=== PATIENT | male | born 1970 | race Asian ===

== ENCOUNTER 2019-03-22 09:40 | Outpatient (REF) | payer BC, SELFPAY ==
[2019-03-22 13:10] LABS: Anion Gap 9.6 mmol/L (3-11); BUN 14 mg/dL (7-18); CO2 28.4 mmol/L (21.0-32.0); CREATININE 0.95 mg/dL (0.70-1.30); Calcium 9.2 mg/dL (8.5-10.1); Calculated LDL 107 mg/dL; Chloride 106 mmol/L (98-107); Cholesterol 210 mg/dL (50-200); Glucose 98 mg/dL (70-100); HDL Cholesterol 42 mg/dL (40-60); Potassium 3.9 mmol/L (3.5-5.1); Sodium 144 mmol/L (136-145); Triglyceride 309 mg/dL (30-150)
[2019-03-23 13:19] LABS: PSA, Screening 0.5 ng/ml (0-2.5)
== END 2019-03-22 10:00 ==
LOC: NCHCN 09:40
PROVIDERS: PCP Specialist/Technologist Athletic Trainer; Visit Provider Specialist/Technologist Athletic Trainer
DX: Z00.00 Encounter for general adult medical examination without abnormal findings (principal); Z13.220 Encounter for screening for lipoid disorders; Z13.228 Encounter for screening for other metabolic disorders; Z12.5 Encounter for screening for malignant neoplasm of prostate
CPT/HCPCS: 80048; 80061; 84153

== ENCOUNTER 2020-04-29 10:11 | Outpatient (REF) | payer BC, SELFPAY ==
[2020-04-29 21:19] LABS: Calculated LDL 164 mg/dL (<100); Cholesterol 259 mg/dL (<200); HDL Cholesterol 47 mg/dL (40-60); Triglyceride 242 mg/dL (<150)
== END 2020-04-29 10:31 ==
LOC: NCHCN 10:11
PROVIDERS: PCP Specialist/Technologist Athletic Trainer; Visit Provider Nurse Practitioner Family
DX: E78.1 Pure hyperglyceridemia (principal)
CPT/HCPCS: 80061

== ENCOUNTER 2020-09-10 15:11 | Outpatient (CLI) | payer BC, SELFPAY ==
--- NOTE | 2020-09-10 | DI.RAD_ITS ---
EXAM: XR FOOT LT COMPLETE CLINICAL HISTORY: SPRAIN OF LT FOOT, [id number]. TECHNIQUE: 2D digital imaging was performed. COMPARISON: No exams were available for comparison FINDINGS: BONES: There is an acute nondisplaced fracture through the base of the 5th metatarsal. No bony destr uctive lesion is seen. JOINTS: No dislocation present. SOFT TISSUE: Normal. IMPRESSION: Acute nondisplaced fracture through the base of the 5th metatarsal. DATA REPOSITORY: RADIATION DOSE DELIVERED:
== END 2020-09-10 15:31 ==
PROVIDERS: PCP Specialist/Technologist Athletic Trainer; Visit Provider Internal Medicine
DX: M79.672 Pain in left foot (principal); S93.692A Other sprain of left foot, initial encounter; S92.355A Nondisplaced fracture of fifth metatarsal bone, left foot, initial encounter for closed fracture
CPT/HCPCS: 73630

== ENCOUNTER 2020-10-22 09:45 | Outpatient (CLI) | payer BC, SELFPAY ==
--- NOTE | 2020-10-22 09:15 | DI.RAD_ITS ---
Exam(s) XR FOOT LT COMPLETE EXAM: XR FOOT LT COMPLETE CLINICAL HISTORY: f/u. TECHNIQUE: 2D digital imaging was performed. COMPARISON: CR XR FOOT LT COMPLETE from 09/10/2020 FINDINGS: BONES: There has been no change in the alignment of the previously noted fracture at the base of the 5th metatarsal.. No bony destructive lesion is seen. JOINTS: No dislocation present. SOFT TISSUE: Normal. IMPRESSION: No change in alignment of fracture base 5th metatarsal DATA REPOSITORY: RADIATION DOSE DELIVERED:
== END 2020-10-22 09:46 | disposition home or self-care (01) ==
LOC: DIORS 09:45
PROVIDERS: PCP Specialist/Technologist Athletic Trainer; Referring Provider Specialist/Technologist Athletic Trainer; Visit Provider Student in an Organized Health Care Education/Training Program
DX: S92.352D Displaced fracture of fifth metatarsal bone, left foot, subsequent encounter for fracture with routine healing (principal)
CPT/HCPCS: 73630

== ENCOUNTER 2021-05-15 11:36 | Outpatient (REF) | payer BC, SELFPAY ==
[2021-05-15 14:55] LABS: Calculated LDL 82 mg/dL (<100); Cholesterol 150 mg/dL (<200); HDL Cholesterol 47 mg/dL (40-60); Triglyceride 105 mg/dL (<150)
== END 2021-05-15 11:37 ==
LOC: NCHCN 11:36
PROVIDERS: PCP Specialist/Technologist Athletic Trainer; Visit Provider Family Medicine
DX: E78.1 Pure hyperglyceridemia (principal); Z00.00 Encounter for general adult medical examination without abnormal findings
CPT/HCPCS: 80061

== ENCOUNTER 2021-05-19 13:27 | Outpatient (REF) | payer BC, SELFPAY ==
[2021-05-19 15:31] LABS: ALT 95 U/L (16-63); AST 27 U/L (15-37); Albumin 4.3 g/dL (3.4-5.0); Alkaline Phosphatase 81 U/L (46-116); Anion Gap 6.1 mmol/L (3-11); BUN 14 mg/dL (7-18); Bilirubin, Total 0.7 mg/dL (0.2-1.0); CO2 28.9 mmol/L (21.0-32.0); CREATININE 0.9 mg/dL (0.70-1.30); Calcium 9.4 mg/dL (8.5-10.1); Chloride 105 mmol/L (98-107); Glucose 103 mg/dL (74-106); Sodium 140 mmol/L (136-145); Total Protein 7.7 g/dL (6.4-8.2)
[2021-05-20 09:52] LABS: HBs Antibody, Quant >1000.0 mIU/mL (See Note); Hepatitis B Surface Ab Positive (See Note)
[2021-05-20 10:06] LABS: Hepatitis B Surface Ag Negative (Negative)
== END 2021-05-19 13:28 | disposition home or self-care (01) ==
LOC: NCHCN 13:27
PROVIDERS: PCP Specialist/Technologist Athletic Trainer; Visit Provider Family Medicine
DX: Z00.00 Encounter for general adult medical examination without abnormal findings (principal); E78.1 Pure hyperglyceridemia; Z11.59 Encounter for screening for other viral diseases
CPT/HCPCS: 80053; 86706; 87340

== ENCOUNTER 2022-04-06 09:55 | Day surgery (SDC) | payer BC, SELFPAY ==
--- NOTE | 2022-04-06 07:11 | W.COLOREPORT ---
Date of service: 04/06/22 Time of Service: 11:15 Colonoscopy Report Date of procedure: 04/06/22 Pre-op diagnosis general: screening and family history Procedure: Colonoscopy Surgeon: Isabella Root Anesthesia Type: General:No Airway Estimated blood loss (mL): 0 Pathology: none sent Complications: None Disposition: same day Indications: The patient? is a pleasant 51 -year-old male who is here to discuss HIS FIRST screening colonoscopy. ? He denies any changes in bowel habits, melena, hematochezia, unintentional weight loss. He does have a? family history of colon cancer in his mother.? The procedure and risks were discussed.? The prep was reviewed in detail.? Risks, benefits and complications have been reviewed. Complications include but are not limited to bleeding, pain, perforation, missed small lesion/polyp, sore throat, aspiration and adverse reaction to the medications. Questions were entertained and answered to their satisfaction and they wished to proceed. No guarantees were given or implied. Prep: Miralax/Dulcolax Procedure Start Time: :15 Procedure End Time: 11:30 Retraction Time: 9 minutes Findings: Normal colonoscopy Procedure Description: After informed consent was obtained the patient was taken to the procedure room and placed in a left decubitous position. Monitors were applied and a time out was done. The patients name, date of , procedure, allergies to medications and metal in their body was reviewed. The patient was then sedated. Once sedated and comfortable a rectal exam was done. External exam was normal. Internal exam revealed a normal sphincter tone and no palpable masses. The prostate felt smooth. The scope was then introduced and retro-flexed. No internal hemorrhoids, polyps or masses were identified on retro-flexion. The scope was then advanced to the cecum without difficulty. The ileocecal vlave and appendiceal orifice were identified. The prep was good. The scope was then slowly retracted over 9 minutes back into the rectum. There were no polyps. There was no diverticulosis noted. The scope was removed and the patient was woken up and taken back to Same day surgery in stable condition. The patient tolerated the procedure well and there were no immediate complications. Follow up: The patient should follow up in 5 years, due to a family history, unless they develop changes in bowel habits or other new gastrointestinal complaints.
--- NOTE | 2022-04-06 07:12 | W.PM.DSUDISC ---
Date of service: 04/06/22 Time of Service: 11:15 Discharge Plan Disposition Patient Disposition: HOME Condition: Good Discharge Details Reason For Visit: colonoscopy Attending Provider: Isabella Root Primary Care Provider: Jayy Garcia Home Meds and New Rx's Prescriptions: Continued atorvastatin 10 mg tablet 10 mg PO QHS omega-3 fatty acids 1,000 mg capsule 1,000 mg PO DAILY multivitamin [Daily Value] 1 EACH tablet 1 tab PO DAILY Discontinued bisacodyl [Dulcolax (bisacodyl)] 5 mg tablet,delayed release (DR/EC) 5 mg PO ONCE Qty: 4 0RF Rx Instructions: Take according to provider's instructions for colonoscopy prep. polyethylene glycol 3350 17 gram/dose powder 17 g PO ONCE Qty: 238 0RF Rx Instructions: To be taken as directed by prescriber's office for colonoscopy prep. Discharge Instructions Additional Instructions: Findings: normal Follow up: 5 years due to family history Please call if you develop: fevers >101.5 Nausea or Vomiting Abdominal pain that is not transient Rectal bleeding that is more then a tbsp A hard abdomen and inability to pass gas DAY SURGERY UNIT POST ENDOSCOPY INSTRUCTIONS Instructions for everyone who is given Anesthesia: For your safety, please do the following for the next 24 Hours: a. Do not drive or operate dangerous equipment b. Do not drink alcohol beverages or use any recreational drugs for the first 24 hours or while taking pain medications. The medications in your body may have a reaction that can be dangerous. c. Do not make any important decisions or sign any important papers 1. Generally there are no restrictions on your activity after a day or so has gone by, but you may feel a bit fatigued for a few days. 2. After you arrive home you may have a light meal and return to a normal diet as you can tolerate it without feeling sick to your stomach. 3. After surgery, you may feel pain or discomfort. This should be only transient, but if it persists please contact your doctor. 4. If there are any questions regarding the findings of your procedure, please feel free to contact your doctor. 6. If you are unable to contact your doctor with a problem, contact the hospital at [phone]. 7. Continue all your regular medications unless directed otherwise. I understand the above instructions and have no questions. Signature of Patient or Responsible Adult Escort Date/Time Name of Responsible Adult Escort Signature of Nurse Date/Time Activity:: Activity as Tolerated Diet:: As Tolerated Discharge Orders Discharge Orders: Discharge Order (Routine); Ordered 04/06/22 Ordered By: Isabella Root
[2022-04-06 10:15] VITALS: BP 110/76; PULSE 65; RESP 16; TEMP 36.2; O2SAT 100
--- NOTE | 2022-04-06 10:41 | ANES.PREOP_ITS ---
General Info Date of Service Date Performed: 04/06/22 Height: 5 ft 8.9 in Weight: 70.6 kg Body Mass Index (BMI): 23.0 Surgical Procedure: Operation Date: 04/06/22 11:20 Proposed Procedure Side Surgeon p Colonoscopy Isabella Root MD Meds Allergies and Home Medications Allergies Allergy/AdvReac Type Severity Reaction Status Date / Time No Known Allergies Allergy Unverified 04/06/22 10:24 Home Medication Medication Instructions Recorded multivitamin (Daily Value tablet) 1 tab PO DAILY 09/15/15 atorvastatin 10 mg tablet 10 mg PO QHS 07/22/21 omega-3 fatty acids 1,000 mg 1,000 mg PO DAILY 07/22/21 capsule bisacodyl 5 mg tablet,delayed 5 mg PO ONCE #4 tabs 03/24/22 release (Dulcolax (bisacodyl)) polyethylene glycol 3350 17 17 g PO ONCE #238 grams 03/24/22 gram/dose oral powder Current Visit Medications: Current Medications Generic Name Dose Route Start Last Admin Trade Name Nicole PRN Reason Stop Dose Admin Hyoscyamine Sulfate 0.125 mg 04/06/22 07:12 Hyoscyamine 0.125 Mg Sl/Oral/Chew SL DIRECTED PRN Ringer's Solution 1,000 mls @ 80 mls/hr 04/06/22 06:00 IV 05/03/22 23:59 [facility] IV Miscellaneous Supplies 1 each 04/06/22 06:00 Iv Access IV 05/03/22 23:59 DIRECTED DINORA Ondansetron HCl 4 mg 04/06/22 07:12 Ondansetron 4 Mg/2 Ml Vial IVP Q4H PRN PRN Nausea / Vomiting Sodium Chloride 0 ml 04/06/22 06:00 Normal Saline Flush 10 Ml Syr IV 05/03/22 23:59 PRN PRN Sodium Chloride 0 ml 04/06/22 06:00 Normal Saline 10 Ml Vial IJ 05/03/22 23:59 DIRECTED PRN Sterile Water 0 ml 04/06/22 06:00 Water,Injection,Sterile 10 Ml Vial IJ 05/03/22 23:59 DIRECTED PRN PFSH Active Problems Active Problems: Problem Status Onset Code Family history of colon cancer Z80.0 Screening for colon cancer Z12.11 Medical History Medical History Fracture of fifth metatarsal bone of left foot Hemorrhoids Hyperlipidemia Seasonal allergic rhinitis Tobacco Smoking/Tobacco Use Status: Former Tobacco Use Alcohol Alcohol Intake: current Alcohol intake frequency: a few times a month Alcohol type: wine Substance Use Substance use: Never Substance use type: does not use Vital Signs and Lab Results Vital Signs Most Recent Vital Signs in EMR: Most Recent Vital Signs Temp Pulse Resp BP Pulse Ox 36.2 C L 65 16 110/76 100 04/06/22 10:15 04/06/22 10:15 04/06/22 10:15 04/06/22 10:15 04/06/22 10:15 Lab Results Blood Type / Crossmatch: No Data to Display Complete Blood Count: No Data to Display Complete Metabolic Panel: No Data to Display Liver Function Panel: No Data to Display Coagulation Panel: No Data to Display Cardiac Panel: No Data to Display Arterial Blood Gas: No Data to Display Venous Blood Gas: No Data to Display Pancreas Panel: No Data to Display Thyroid Panel: No Data to Display Infectious Disease: No Data to Display Blood Cultures: No Data to Display Toxicology Panel: No Data to Display Anesthesia Assessment and Plan Anesthesia History Personal History: Unknown Anesthesia History Family History: No Family History of Anesthesia Complications Exercise Tolerance Exercise Tolerance: Metabolic Equivalents>4 Pertinent Negatives Pertinent Negatives: No Symptoms of GERD, No Major Cardiovascular Symptoms or Complaints and No Major Pulmonary Symptoms or Complaints Cardiac & Pulmonary Exam Cardiac Exam: Normal S1/S2 Heart Sounds Pulmonary Exam: Clear Bilateral Breath Sounds Implantable Cardiac Device Does patient have a Pacemaker or an ICD?: No Airway Exam Known Difficult Airway: No Mallampati Class: 2 Mouth Opening: Normal (> 3cm) Thyromental Distance: Greater than 3 cm Neck Range of Motion: Full ROM Neck Circumference: Normal Teeth Condition: Normal Dentition ASA Classification ASA Score: ASA 2 Emergency Case?: No NPO Status NPO Status: NPO Clears >2 hours, Solids >8 hours Anesthesia Plan Resuscitation Status: Full Code Anesthesia Technique: General Anesthesia Airway Planned: Natural Airway Monitors Used: Standard Monitors Preoperative Comments:: Use of Cantonese senior visual designer for preoperative interview and consent via Language Line
[2022-04-06] MEDS: Lactated Ringers 1,000 ML 80 ML IV (10:44)
[2022-04-06 11:10] VITALS: BMI 23.0
[2022-04-06 11:36] VITALS: BP 115/84; PULSE 60; RESP 16; TEMP 36.6; O2SAT 97
[2022-04-06 12:06] VITALS: BP 106/87; PULSE 62; RESP 18; TEMP 36.5; O2SAT 97
--- NOTE | 2022-04-06 12:54 | W.ANESPOSTOP ---
Postoperative Evaluation Date, Time and Location Date Performed: 04/06/22 Time Performed: 12:15 Patient Location: Day Surgery Unit Vital Signs Most Recent Imported Vital Signs: Most Recent Vital Signs Temp Pulse Resp BP Pulse Ox 36.5 C 62 18 106/87 97 04/06/22 12:06 04/06/22 12:06 04/06/22 12:06 04/06/22 12:06 04/06/22 12:06 Pain Score Most Recent Pain Score: Most Recent Pain Score Pain Level 1 04/06/22 12:06 Assessment Mental Status: Awake (Alert & Oriented to Patient Baseline) Airway and Respiratory Function: Patent airway with normal (patient baseline) respiratory exam Cardiovascular Function: Hemodynamically Stable Hydration Status: Adequately Hydrated Nausea & Vomiting: No Nausea or Vomiting Pain: Pt. Denies Any Pain Peripheral Nerve Block: Patient did not receive a nerve block
== END 2022-04-06 12:20 | disposition home or self-care (01) ==
PROVIDERS: PCP Family Medicine; Visit Provider Surgery
PROC: 0DJD8ZZ Inspection of Lower Intestinal Tract, Via Natural or Artificial Opening Endoscopic (ICD-10-PCS; CPT 45378; principal; 2022-04-06 11:15)
DX: Z12.11 Encounter for screening for malignant neoplasm of colon (principal); Z80.0 Family history of malignant neoplasm of digestive organs
CPT/HCPCS: 45378

== ENCOUNTER 2022-06-22 09:07 | Outpatient (REF) | payer BC, SELFPAY ==
[2022-06-22 15:55] LABS: Calculated LDL 121 mg/dL (<100); Cholesterol 211 mg/dL (<200); Glucose 96 mg/dL (74-106); HDL Cholesterol 50 mg/dL (40-60); Triglyceride 202 mg/dL (<150)
== END 2022-06-22 09:08 | disposition home or self-care (01) ==
LOC: NCHCN 09:07
PROVIDERS: PCP Family Medicine; Visit Provider Family Medicine
DX: E78.5 Hyperlipidemia, unspecified (principal); R42 Dizziness and giddiness
CPT/HCPCS: 80061; 82947

== ENCOUNTER 2023-06-21 16:27 | Outpatient (REF) | payer BC, SELFPAY ==
[2023-06-21 19:54] LABS: Abs Immature Grans 0.02 10^3/uL (0.0-0.06); Absolute Basophil Count 0.05 10^3/uL (0.0-0.2); Absolute Eosinophil Count 0.22 10^3/uL (0.0-0.7); Absolute Lymphocyte Count 1.79 10^3/uL (1.2-3.4); Absolute Monocyte Count 0.37 10^3/uL (0.1-0.8); Absolute Neutrophil Count 3.49 10^3/uL (1.2-6.7); Basophils % 0.8; Eosinophils % 3.7; HCT 46.4 % (40.0-50.0); HGB 15.8 g/dL (13.5-17.5); Immature Grans % 0.3; Lymphocytes % 30.1; MCH 32.2 pg (27.0-33.0); MCHC 34.1 % (32.0-36.0); MCV 95 fL (80-95); MPV 10.1 fL (8.0-11.0); Monocytes % 6.2; Neutrophils % 58.9; Platelet Count 269 10^3/uL (130-400); RBC 4.91 10^6/uL (4.36-5.78); RDW 11.9 % (11.8-14.1); RDW-SD 40.8 fL; WBC 5.94 10^3/uL (4.4-10.8)
[2023-06-21 20:08] LABS: ALT 60 U/L (16-63); AST 25 U/L (15-37); Albumin 4.1 g/dL (3.4-5.0); Alkaline Phosphatase 59 U/L (46-116); Anion Gap 7.4 mmol/L (3-11); BUN 15 mg/dL (7-18); Bilirubin, Total 0.8 mg/dL (0.2-1.0); CO2 29.6 mmol/L (21.0-32.0); CREATININE 0.9 mg/dL (0.70-1.30); Calculated LDL 68 mg/dL (<100); Chloride 104 mmol/L (98-107); Cholesterol 150 mg/dL (<200); Estimated GFR 102.76 (mL/min/1.73m2); Glucose 90 mg/dL (74-106); HDL Cholesterol 53 mg/dL (40-60); Potassium 4.5 mmol/L (3.5-5.1); Sodium 141 mmol/L (136-145); Total Protein 7.7 g/dL (6.4-8.2); Triglyceride 146 mg/dL (<150)
== END 2023-06-21 16:28 | disposition home or self-care (01) ==
LOC: NCHCN 16:27
PROVIDERS: PCP Family Medicine; Visit Provider Family Medicine
DX: Z00.00 Encounter for general adult medical examination without abnormal findings (principal); E78.5 Hyperlipidemia, unspecified
CPT/HCPCS: 80053; 80061; 85025

== ENCOUNTER 2024-06-26 14:55 | Outpatient (REF) | payer BC, SELFPAY ==
[2024-06-26 17:44] LABS: ALT 99 U/L (16-63); AST 32 U/L (15-37); Albumin 4.2 g/dL (3.4-5.0); Alkaline Phosphatase 72 U/L (46-116); BUN 15 mg/dL (7-18); Bilirubin, Total 0.65 mg/dL (0.2-1.0); CREATININE 0.8 mg/dL (0.70-1.30); Calcium 9.5 mg/dL (8.5-10.1); Calculated LDL 71 mg/dL (<100); Chloride 107 mmol/L (98-107); Cholesterol 146 mg/dL (<200); Estimated GFR 105.82 (mL/min/1.73m2); Glucose 97 mg/dL (74-106); HDL Cholesterol 53 mg/dL (40-60); Potassium 4.2 mmol/L (3.5-5.1); Sodium 144 mmol/L (136-145); Total Protein 7.4 g/dL (6.4-8.2); Triglyceride 111 mg/dL (<150)
== END 2024-06-26 14:56 | disposition home or self-care (01) ==
LOC: NCHCN 14:55
PROVIDERS: PCP Family Medicine; Visit Provider Family Medicine
DX: E78.5 Hyperlipidemia, unspecified (principal)
CPT/HCPCS: 80053; 80061